=== PATIENT | male | born 1970 | race Caucasian/White ===

== ENCOUNTER → 2017-08-17 | Outpatient (CLI) | payer OTHER ==
--- NOTE | 2017-08-18 06:00 | PAP/PSG TECHNICIAN REPORT ---
[facility] Flow Manager Polysomnogram Report Study name: None Report date: 08/18/2017 Study date: 08/17/2017 Referring Physician: Leslie Mcgill PA-C Name: ZOHRA BASS Interpreting Physician: Carlo Ferrer M.D. Date of : 1970 Flow Manager: Haydee Murphy RPS. Sex: Male Age: 46 Study Type: PSG PAP Weight: 284 lbs 19 in Height: 46 years, Height 6' 0" Neck Circum: BMI: 38.51 Medications: LOSARTAN-HCTZ 50-12.5 MG, DICLOFENAC 75 MG, TIZAIDINE 4 MG Patient History 46 yr-old male here for a CPAP update study. He has been using CPAP for about eight years. He has been told he still snores and has apnea. He is also experiencing some daytime sleepiness. His [place] scale is 9. He is back to assess his pressure settings. He wears a Simplus full face mask size medium from [employer]. His machine is eight years old and he states that it malfunctions and turns off at times. The test was started on room air and 4 CMH2O. ETCO2 testing was not utilized during this study. Room 1 Parameters Monitored NPSG: E1-M2, E2-M1, Fp1-M2, Fp2-M1, F3-M2, F4-M2, F4-M1, C3-M2, C4-M2, C4-M1, O1-M2, O2-M2, O2-M1, T3-M2, T4-M1, P3-M2, P4-M1, CHIN1, CHIN2, HR, EKG, Legs, PFLOW, SNOR, FLOW, CFLOW, Tidal Volume, THOR, ABDO, SpO2, PLTH, CPRESS, ETCO2 Wave, ETCO2, pH Sleep Architecture Sleep Stages Time at Lights Off 10:46:54 PM STAGES Time (min.) TST (%) Time at Lights On 5:31:24 AM Wake 196.5 -- Total Recording Time (TRT) 404.50 min. N1 51.0 25 Total Sleep Period (TSP) 288.0 min. N2 129.5 62 Total Sleep Time (TST) 208.0min. N3 0.0 0 Awake Time 196.5 min. REM 27.5 13 Wake after Sleep Onset 80.0 min. Sleep Efficiency (SE) 51 % Sleep Onset Latency (HANK) 116.5 min. Number of Stage 1 Shifts None Awakenings 21 Stage Changes 76 Number of REM periods 2 REM 27.5 13 REM Latency 135.0 min. NREM 180.5 87 Body Position Analysis Supine Right Left Side Prone Vertical Total Sleep Time (min.) 28.6 95.8 7.3 103.07 158.5 0.0 Total Sleep Time (%) 6% 46% 3% 50 44% N/A% Total Sleep Time REM (min.) 0.0 14.5 0.0 None 13.0 0.0 Total Sleep Time NREM (min.) 12.9 81.3 7.3 None 79.0 0.0 Intermittent Wake (min.) 15.7 55.3 59.0 None 66.5 0.0 Total Sleep Period (%) 7% None None None None None Arousals Myoclonus (PLM) * Events Count Index Events Count Index Spontaneous 28 8 Events Awake (PLMW) 114 34.8 Respiratory 26 7.8 Events Asleep w/ Arousal (PLMA) 1 0.3 PLM 1 0 Events Asleep w/o Arousal (PLMS) 11 3.2 Snoring 21 6 Total Asleep 12 3.5 Total 76 22 Total 126 19 Respiratory Analysis * CA OA MA CH H RERA Total Count 0 1 0 0 29 6 30 Index 0.0 0.3 0.0 0 8.4 2 10.4 Mean Duration 0.0 13.2 0.0 0.00 18.2 17.3 17.9 Longest Duration 0.0 13.2 0.0 0.00 0.0 20.2 24.8 Respiratory Event Summary Total Supine ~Supine Right Left Prone REM NREM Apneas Count 1 0 1 0 1 0 0 1 Index 0.3 0 0 0.0 8.3 0 0 0 Hypopneas (4% Desat) Count 29 9 20 5 1 14 1 28 Index 8.4 41.8 6 3.1 8.3 9.1 2.2 9.3 Apneas & All Hypopneas Count 30 9 21 5 2 14 1 29 Index 8.7 42 6 3 17 9 2.2 9.6 Respiratory Events (Knotting Machine Operator+All Hyp+RERA) Count 30 10 26 5 3 18 1 29 Index 10.4 46 8 3.1 24.8 11.7 2.2 11.6 Respiratory Related Arousal Count 26 10 17 3 3 11 0 27 Index 7.8 46 5 2 25 7 0 9 Snoring Analysis Supine Right Left Prone REM NREM Total Snore duration 14.9 min Snores count 36 217 15 495 64 699 763 Snore mean duration 1.2 Sec Snores index 167 136 124 323 139.6 232.4 220.1 TST with snoring (%) 7.1% Desaturation Event Summary: Minimum %SpO2 Event Count Mean/Min/Max Duration(sec.) Desaturation Index % Time In Bed > 90 65 25.5 / 5.5 / 54.3 14.1 77.7 86 - 90 10 18.5 / 6.3 / 26.8 7.6 22.1 81 - 85 0 N/A 0.0 0.2 76 - 80 0 N/A 0.0 0.0 71 - 75 0 N/A 0.0 0.0 66 - 70 0 N/A 0.0 0.0 61 - 65 0 N/A 0.0 0.0 56 - 60 0 N/A 0.0 0.0 51 - 55 0 N/A 0.0 0.0 < 50 0 N/A 0.0 0.0 Total REM NREM Awake <50% 0.0 min. 0.0 min. 0.0 min. 0.0 min. 51 - 60% 0.0 min. 0.0 min. 0.0 min. 0.0 min. 61 - 70% 0.0 min. 0.0 min. 0.0 min. 0.0 min. 71 - 80% 0.0 min. 0.0 min. 0.0 min. 0.0 min. 81 - 90% 79.6 min. 1.7 min. 48.8 min. 29.0 min. 91 - 100% 277.2 min. 25.8 min. 127.0 min. 124.4 min. Average 92 92 91 92 Minimum SpO2 82 87 83 82 Desaturation Event Index 10.1 2.2 12.6 8.9 # Desat. Events below 89% 28 1 21 6 Time(%) with Saturation below 89% 2.7 0.1 2.1 0.5 Time(min.) with Saturation below 89% 9.8 0.4 7.5 1.9 Time (mins) REM (mins) NREM (mins) % of TST SpO2 Below 90% 36 1 N35 8.8 SpO2 Below 88% 8 0 0 1 Heart Rate Analysis Min (bpm) Max (bpm) Average (bpm) Awake 46 300 85 NREM 56 127 71 REM 57 89 71 Overall 56 127 71 Supplemental O2 Values Minimum O2 level: None Value Start Time End Time Flow Manager Comments Mr. Bass slept in the right, left, supine, and prone positions. No cardiac arrhythmias were noted. Some PLMs were noted. No bruxism noted. CPAP was initiated at +4 CMH2O and up-titrated to a level of +11 CMH2O, Cflex 2. He had trouble getting to sleep. An optimal pressure was not obtained due to lack to sleep and lack of supine sleep. A Simplus full face mask size medium from [employer] was used during titration He did not wake up to use the restroom during the night. Mr. Bass stated that he slept poorly. The final report will be interpreted and signed by a sleep physician. The completed physician report will then be placed in the patient medical record. Therapy Event: Therapy (cm H20) 4 6 7 9 11 Total Time at Pressure (min.) 245.3 26.7 44.1 21.5 67.0 TST at Pressure (min.) 58.5 25.5 42.1 19.0 63.0 # Periods 1 1 1 1 1 Sleep Onset (min.) 116.5 1.2 0.0 0.0 0.0 REM Onset (min.) N/A 6.2 N/A N/A 20.5 Sleep Efficiency % 23 95 95 88 94 Wakefulness (%) 76.2 4.5 4.5 11.7 6.0 Wakefulness (min.) 186.8 1.2 2.0 2.5 4.0 NREM 1 (%) 12.8 13.1 11.5 39.2 3.7 NREM 1 (min.) 31.5 3.5 5.1 8.4 2.5 NREM 2 (%) 11.0 33.7 83.9 49.1 68.6 NREM 2 (min.) 27.0 9.0 37.0 10.5 46.0 NREM 3 (%) 0.0 0.0 0.0 0.0 0.0 NREM 3 (min.) 0.0 0.0 0.0 0.0 0.0 REM (%) 0.0 48.8 0.0 0.0 21.7 REM (min.) 0.0 13.0 0.0 0.0 14.5 # Arousals 46 5 11 12 2 Arousal Index 47.2 11.8 15.7 38.0 1.9 # Snore 243 178 308 30 4 Snore Index 249.2 419.3 438.8 95.0 3.8 AHI 15.4 2.4 8.5 25.3 0.0 AHI Supine N/A N/A 57.9 40.4 N/A AHI Non-Supine 15.4 2.4 7.3 0.0 0.0 NREM AHI 15.4 0.0 8.5 25.3 0.0 REM AHI N/A 4.6 N/A N/A 0.0 RDI 20.5 2.4 8.5 28.5 0.0 # Obstructive 1 0 0 0 0 # Central Ap 0 0 0 0 0 # Mixed 0 0 0 0 0 # Hypopneas 14 1 6 8 0 RERAS 5 0 0 1 0 Total Respiratory Events 20 1 6 9 0 Time Below SpO2 89.00% (min.) 3.4 0.4 3.4 0.7 0.0 Mean NREM SpO2 (%) 91 91 91 93 92 Mean REM SpO2 (%) N/A 91 N/A N/A 92 Mean Sleep SpO2 (%) 91 91 91 93 92 Min NREM SpO2 (%) 84 90 83 83 89 Min REM SpO2 (%) N/A 87 N/A N/A 90 Position Supine (min.) 0.0 0.0 1.0 11.9 0.0 Position Non-supine (min.) 58.5 25.5 41.1 7.1 63.0 LM Index Sleep 7.2 2.4 2.8 6.3 0.0 LM Index NREM 7.2 0.0 2.8 6.3 0.0 LM Index REM N/A 4.6 N/A N/A 0.0 Mean Heart Rate (bpm) 76 73 70 67 67 Min Heart Rate (bpm) 60 57 56 58 60
--- NOTE | 2017-08-18 15:31 | POLYSOMNOGRAPH REPORT ---
CLINICAL DATA: A 46-year-old male with BMI of 38.5 referred by Leslie Mcgill and myself as well as Dr. Dmitriy Cortes. He is referred for a CPAP study. He is using CPAP but still snores and has apnea. He still has daytime sleepiness. His CPAP machine is 8 years old and malfunctions at times. He wears a Simplus full face mask size medium from [employer]. SLEEP ARCHITECTURE: Total sleep period was 288 minutes. Total sleep time was 208 minutes divided between 180.5 minutes of non-REM sleep and 27.5 minutes of REM sleep. Sleep onset latency was delayed at 116.5 minutes. REM latency was 135 minutes. Sleep efficiency was reduced at 51%. Wake after sleep onset was 80 minutes. Sleep consisted of stage N1 25%, stage N2 62%, and REM 13%. AROUSAL DATA: Seventy-six arousals recorded for an index of 22 per hour. PLM DATA: Twelve limb movements during sleep were noted for an index of 3.5 per hour with arousal index of 0.3 per hour. RESPIRATORY DATA: The AHI was 8.7. There was 1 obstructive apneic episode, 13.2 seconds in duration. There were 29 hypopneic episodes with the mean duration of 18.2 seconds. OXIMETRY DATA: Nocturnal hypoxemia was seen. Oxygen andrea was 83%. Mean saturation was 92%. Time below 88% was 8 minutes. EKG: Heart rates ranged from 56-127 beats per minute. No arrhythmias were noted. METAL LEAF LAYER'S COMMENTS: The patient slept in the right, left, supine, and prone positions. CPAP was started and titrated up to final setting of 11 cm of water pressure, C-Flex setting 2. The patient had difficult time falling asleep. At his final pressure setting of 11 cm of water pressure, he slept for 63 minutes with an AHI of 0. However, he did not achieve a significant amount of supine REM sleep. IMPRESSION: Obstructive sleep apnea/hypopnea improved with CPAP 11 cm of water pressure, C-Flex setting 2 with a [employer] Simplus full facemask size medium. RECOMMENDATIONS: The patient should have CPAP set at 11 cm of water pressure, C-Flex setting 2 with followup within 90 days to document efficacy and compliance. [facility]
== END | disposition home or self-care (01) ==
LOC: C.NEUR 21:00
PROVIDERS: ATTEND Physician Assistant Medical
DX: G47.33 Obstructive sleep apnea (adult) (pediatric) (principal)